=== PATIENT | female | born 1980 | race Caucasian/White ===

== ENCOUNTER 2023-07-22 20:19 | Emergency (ER) | payer MEDICAID ==
[~2023-07-22] VITALS: Ht 182.9 cm; Wt 117.9 kg
[2023-07-22 20:53] VITALS: BP 148/83; PULSE 85; RESP 20; TEMP 97.2; O2SAT 99
[2023-07-22 22:10] LABS: BASOPHILS % (AUTO) 0.8 % (0.0-2.0); EOSINOPHILS # (AUTO) 0.1 K/uL (0-0.4); EOSINOPHILS % (AUTO) 2.3 % (0.0-4.0); HEMATOCRIT 34.6 % (36-48); HEMOGLOBIN 11.5 g/dL (12.0-16.0); LYMPHOCYTES % (AUTO) 36.1 % (20.5-51.1); MEAN CORPUSCULAR HEMOGLOBIN 28 pg (27-31); MEAN CORPUSCULAR HGB CONC 33 g/dL (33-37); MEAN CORPUSCULAR VOLUME 83.4 fL (80-94); MONOCYTES # (AUTO) 0.4 K/uL (0.8-1.0); MONOCYTES % (AUTO) 6.8 % (1.7-9.3); NEUTROPHILS # (AUTO) 2.9 K/uL (1.8-7.7); PLATELET COUNT (AUTO) 308 K/uL (140-450); RED BLOOD CELL COUNT(AUTO) 4.15 MIL/uL (4.20-5.40); RED CELL DISTRIBUTION WIDTH 15.5 % (11.6-13.7); WHITE BLOOD COUNT (AUTO) 5.4 K/uL (4.8-10.8)
[2023-07-22 22:30] LABS: INR 0.84 (0.8-1.2); PARTIAL THROMBOPLASTIN TIME 24.5 secs (22-35.6); PROTHROMBIN TIME 8.9 secs (10.8-13.4)
[2023-07-22 22:31] LABS: ALBUMIN 3.1 g/dL (3.4-5.0); CALCIUM 9.3 mg/dL (8.5-10.1); CARBON DIOXIDE 27.1 mmol/L (21-32); CREATININE 0.7 mg/dL (0.6-1.3); POTASSIUM 4.1 mmol/L (3.5-5.1); TOTAL BILIRUBIN 0.2 mg/dL (0.0-1.0)
[2023-07-22] MEDS: KETOROLAC 30 MG/ML VIAL IM ONE (23:13)
[2023-07-22] MEDS: ACETAMINOPHEN EXTRA STRENGTH 500 MG TAB PO ONE (23:14)
[2023-07-23] MEDS ORDERED: [UNRECOGNIZED DRUG - CODE] PO (00:40)
[2023-07-23] MEDS ORDERED: MEDR10TA PO (00:55)
[2023-07-23 00:57] VITALS: BP 131/85; PULSE 87; RESP 18; TEMP 97.3; O2SAT 99
== END 2023-07-23 00:57 | disposition home or self-care (01) ==
LOC: MED 20:19
DX: N93.9 Abnormal uterine and vaginal bleeding, unspecified (principal); Z79.899 Other long term (current) drug therapy; Z98.890 Other specified postprocedural states
CPT/HCPCS: 36415; 80053; 81002; 81025; 84703; 85025; 85610; 85730; 96372; 99283; J1885